=== PATIENT | female | born 1990 | race Hispanic/Latino ===

== ENCOUNTER 2016-12-09 13:58 | Emergency (ER) | payer BC ==
[2016-12-09 15:03] VITALS: BMI 24.9
[2016-12-09 15:09] VITALS: BP 127/77; PULSE 77; RESP 18; TEMP 97.7; O2SAT 96
--- NOTE | 2016-12-09 16:10 | ED PDOC ---
Arrival/HPI - General Chief Complaint: Lower Extremity Problem/Injury Time Seen by Provider: 12/09/16 15:01 Historian: Patient - History of Present Illness Narrative History of Present Illness (Text): 12/09/16 16:07 26yo female in Ed for left knee pain. states pain started while runing yesterday. Pain is only with ambulation. Did not take any medication for pain. Denies calf pain, any other complaint. Past Medical History - Provider Review Nursing Documentation Reviewed: Yes - Infectious Disease Hx of Infectious Diseases: None - Cardiac Hx Cardiac Disorders: No - Pulmonary Hx Respiratory Disorders: No - Neurological Hx Neurological Disorder: No - HEENT Hx HEENT Disorder: No - Renal Hx Renal Disorder: No - Endocrine/Metabolic Hx Endocrine Disorders: No - Hematological/Oncological Hx Leukemia: Yes (in remission) - Integumentary Hx Dermatological Disorder: No - Musculoskeletal/Rheumatological Hx Musculoskeletal Disorders: No - Gastrointestinal Hx Gastrointestinal Disorders: No - Genitourinary/Gynecological Hx Genitourinary Disorders: No - Psychiatric Hx Psychophysiologic Disorder: No Hx Substance Use: No - Surgical History Hx Tonsillectomy: Yes - Anesthesia Hx Anesthesia: Yes Hx Anesthesia Reactions: No Family/Social History - Physician Review Nursing Documentation Reviewed: Yes Family/Social History: Unknown Family HX Smoking Status: Never Smoked Hx Alcohol Use: No Hx Substance Use: No Allergies/Home Meds Allergies/Adverse Reactions: Allergies shellfish derived Allergy (Verified 12/09/16 15:04) ANAPHYLAXIS Review of Systems - Physician Review All systems were reviewed & negative as marked: Yes - Review of Systems Constitutional: Normal Eyes: Normal ENT: Normal Respiratory: Normal Cardiovascular: Normal Gastrointestinal: Normal Genitourinary Female: Normal Musculoskeletal: Arthralgias (LEft knee pain) Skin: Normal Neurological: Normal Endocrine: Normal Hemo/Lymphatic: Normal Psychiatric: Normal Physical Exam Vital Signs Reviewed: Yes Vital Signs Temp Pulse Resp BP Pulse Ox 12/09/16 15:00 97.7 F 77 18 127/77 96 Temperature: Afebrile Blood Pressure: Normal Pulse: Regular Respiratory Rate: Normal Appearance: Positive for: Well-Appearing, Non-Toxic, Comfortable Pain Distress: None Mental Status: Positive for: Alert and Oriented X 3 - Systems Exam Head: Present: Atraumatic, Normocephalic Pupils: Present: PERRL Extroacular Muscles: Present: EOMI Conjunctiva: Present: Normal Mouth: Present: Moist Mucous Membranes Neck: Present: Normal Range of Motion Respiratory/Chest: Present: Clear to Auscultation, Good Air Exchange. No: Respiratory Distress, Accessory Muscle Use Cardiovascular: Present: Regular Rate and Rhythm, Normal S1, S2. No: Murmurs Abdomen: Present: Normal Bowel Sounds. No: Tenderness, Distention, Peritoneal Signs, Rebound Back: Present: Normal Inspection Upper Extremity: Present: Normal Inspection. No: Cyanosis, Edema Lower Extremity: Present: NORMAL PULSES, Normal ROM, Tenderness (Lateral aspect of left knee), Neurovascularly Intact. No: Edema, CALF TENDERNESS, Swelling, Erythema, Deformity, Temperature Abnormalties Neurological: Present: GCS=15, CN II-XII Intact, Speech Normal Skin: Present: Warm, Dry, Normal Color. No: Rashes Psychiatric: Present: Alert, Oriented x 3, Normal Insight, Normal Concentration Medical Decision Making ED Course and Treatment: 12/09/16 16:09 Left knee xray - No acute finding Knee immobilizer placed. Crutches given. Advised to RICE knee. Referred to ortho. TRT ED for any new or worsening symptoms - RAD Interpretation Radiology Orders: 12/09/16 15:03 KNEE WITH PATELLA LEFT 3 VIEW [RAD] Stat - Medication Orders Current Medication Orders: Discontinued Medications Ketorolac Tromethamine (Toradol) 60 mg IM STAT STA Stop: 12/09/16 15:04 Last Admin: 12/09/16 15:18 Dose: 60 mg Disposition/Present on Arrival - Present on Arrival Any Indicators Present on Arrival: No History of DVT/PE: No History of Uncontrolled Diabetes: No Urinary Catheter: No History of Decub. Ulcer: No History Surgical Site Infection Following: None - Disposition Have Diagnosis and Disposition been Completed?: Yes Diagnosis: Knee sprain Disposition: HOME/ ROUTINE Disposition Time: 16:10 Patient Plan: Discharge Condition: STABLE Discharge Instructions (ExitCare): Knee Sprain (ED) Additional Instructions: Rest, Ice, elevate and compress Follow up with your Doctor/orthopedist Return to ED for any new or worsening symptoms Prescriptions: Ibuprofen [Motrin Tab] 600 mg PO Q6 #20 tab Referrals: Audi Pruett MD [Staff Provider] - Follow up with primary
--- NOTE | 2016-12-09 16:33 | RAD ---
PROCEDURE: Left Knee Radiographs. HISTORY: Pain. COMPARISON: None. FINDINGS: BONES: No evidence of acute displaced fracture nor dislocation. Osseous structures appear intact. JOINTS: Joint spaces preserved JOINT EFFUSION: Trace suprapatellar joint effusion felt to be present OTHER FINDINGS: None. IMPRESSION: No acute fractures nor dislocations.
== END 2016-12-09 16:29 | disposition home or self-care (01) ==
LOC: ED 13:58
DX: S83.92XA Sprain of unspecified site of left knee, initial encounter (principal); X58.XXXA Exposure to other specified factors, initial encounter; Y93.02 Activity, running
CPT/HCPCS: 73562; 96372; 99283; J1885

== ENCOUNTER 2017-04-06 01:56 | Emergency (ER) | payer BC ==
[2017-04-06 02:04] VITALS: BP 140/90; PULSE 69; RESP 16; TEMP 97.7; BMI 25.7
--- NOTE | 2017-04-06 03:07 | ED PDOC ---
Arrival/HPI - General Chief Complaint: Trauma Time Seen by Provider: 04/06/17 02:57 Historian: Patient - History of Present Illness Narrative History of Present Illness (Text): 04/06/17 03:05 Giuliana Carrizales is a 26 year old female who presents to the Emergency department status post head injury tonight. 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 Patient now complaining of headache, nausea, and dizziness. Patient denies any loss of consciousness, vision changes, shortness of breath, vomiting, bowel/urinary incontinence, neck pain, other trauma/injury, or any other complaints. Time/Duration: Other (tonight) Symptom Onset: Gradual Symptom Course: Unchanged Activities at Onset: Light Context: Walking, Work Past Medical History - Provider Review Nursing Documentation Reviewed: Yes - Infectious Disease Hx of Infectious Diseases: None - Cardiac Hx Cardiac Disorders: No - Pulmonary Hx Respiratory Disorders: No - Neurological Hx Neurological Disorder: No - HEENT Hx HEENT Disorder: No - Renal Hx Renal Disorder: No - Endocrine/Metabolic Hx Endocrine Disorders: No - Hematological/Oncological Hx Leukemia: Yes (in remission) - Integumentary Hx Dermatological Disorder: No - Musculoskeletal/Rheumatological Hx Musculoskeletal Disorders: No - Gastrointestinal Hx Gastrointestinal Disorders: No - Genitourinary/Gynecological Hx Genitourinary Disorders: No - Psychiatric Hx Psychophysiologic Disorder: No Hx Substance Use: No - Surgical History Hx Tonsillectomy: Yes - Anesthesia Hx Anesthesia: Yes Hx Anesthesia Reactions: No Family/Social History - Physician Review Nursing Documentation Reviewed: Yes Family/Social History: Unknown Family HX Smoking Status: Never Smoked Hx Alcohol Use: Yes Frequency of alcohol use: Few days per week Hx Substance Use: No Allergies/Home Meds Allergies/Adverse Reactions: Allergies Iodinated Contrast- Oral and IV Dye Allergy (Verified 04/06/17 02:04) ITCHING shellfish derived Allergy (Verified 04/06/17 02:04) ITCHING Home Medications: Home Meds Medication Instructions Recorded Confirmed No Known Home Med 04/06/17 04/06/17 Review of Systems - Physician Review All systems were reviewed & negative as marked: Yes - Review of Systems Constitutional: Normal. absent: Fevers Eyes: Normal. absent: Vision Changes ENT: Normal Respiratory: Normal. absent: SOB, Cough Cardiovascular: Normal. absent: Chest Pain Gastrointestinal: Nausea. absent: Abdominal Pain, Diarrhea, Vomiting Genitourinary Female: Normal. absent: Dysuria, Frequency, Hematuria, Urine Output Changes Musculoskeletal: Normal. absent: Back Pain, Neck Pain Skin: Normal Neurological: Headache, Dizziness Endocrine: Normal Hemo/Lymphatic: Normal Psychiatric: Normal Physical Exam Vital Signs Reviewed: Yes Vital Signs Temp Pulse Resp BP Pulse Ox 04/06/17 03:58 16 99 04/06/17 02:03 97.7 F 69 16 140/90 100 Temperature: Afebrile Blood Pressure: Normal Pulse: Regular Respiratory Rate: Normal Appearance: Positive for: Well-Appearing, Non-Toxic, Comfortable Pain Distress: None Mental Status: Positive for: Alert and Oriented X 3 - Systems Exam Head: Present: Atraumatic, Normocephalic Pupils: Present: PERRL Extroacular Muscles: Present: EOMI Conjunctiva: Present: Normal Mouth: Present: Moist Mucous Membranes Neck: Present: Normal Range of Motion Respiratory/Chest: Present: Clear to Auscultation, Good Air Exchange. No: Respiratory Distress, Accessory Muscle Use Cardiovascular: Present: Regular Rate and Rhythm, Normal S1, S2. No: Murmurs Abdomen: Present: Normal Bowel Sounds. No: Tenderness, Distention, Peritoneal Signs Back: Present: Normal Inspection Upper Extremity: Present: Normal Inspection. No: Cyanosis, Edema Lower Extremity: Present: Normal Inspection. No: Edema Neurological: Present: GCS=15, CN II-XII Intact, Speech Normal Skin: Present: Warm, Dry, Normal Color. No: Rashes Psychiatric: Present: Alert, Oriented x 3, Normal Insight, Normal Concentration Medical Decision Making ED Course and Treatment: 04/06/17 03:05 Impression: 26 year old female complaining of headache, nausea, and dizziness s/p head injury tonight at work. Differential Diagnosis included but are not limited to: head injury Plan: -- CT Head w/o contrast -- Zofran -- Reassess and disposition Progress Notes: 04/06/17 03:50 Reviewed radiology, CT Head shows: No intracranial hemorrhage. No intracranial edema. Chronic hypoattenuating areas in the cerebellum. No fluid in the sinuses or mastoid air cells. No depressed fractures. IMPRESSION: No acute intracranial injury. 04/06/17 04:01 04/06/17 03:53 On reevaluation the patient feels better and is in no acute distress. I have discussed the results and plan with the patient, who expresses understanding. Patient given the opportunity to ask question, all questions were answered and there is agreement with the plan to discharge the patient home. Patient is stable for discharge. Patient was instructed to follow up with physician/clinic in 1-2 days or return if symptoms persist/worsen or new concerning symptoms arise. - RAD Interpretation Radiology Orders: 04/06/17 03:08 HEAD W/O CONTRAST [CT] Stat Copier Technician: Radiologist - Medication Orders Current Medication Orders: Discontinued Medications Ondansetron HCl (Zofran Odt) 4 mg PO STAT STA Stop: 04/06/17 03:55 Last Admin: 04/06/17 03:58 Dose: 4 mg - Scribe Statement The provider has reviewed the documentation as recorded by the Mira Velez Provider Scribe Attestation: All medical record entries made by the Scribe were at my direction and personally dictated by me. I have reviewed the chart and agree that the record accurately reflects my personal performance of the history, physical exam, medical decision making, and the department course for this patient. I have also personally directed, reviewed, and agree with the discharge instructions and disposition. Disposition/Present on Arrival - Present on Arrival Any Indicators Present on Arrival: No History of DVT/PE: No History of Uncontrolled Diabetes: No Urinary Catheter: No History of Decub. Ulcer: No History Surgical Site Infection Following: None - Disposition Have Diagnosis and Disposition been Completed?: Yes Diagnosis: Head injury due to trauma Disposition: HOME/ ROUTINE Disposition Time: 03:53 Patient Plan: Discharge Patient Problems: Current Active Problems Problem Status Onset Head injury due to trauma Acute Condition: STABLE Discharge Instructions (ExitCare): Concussion (ED), Head Injury (ED) Additional Instructions: Rest next few days/no strenuous physical activity/Tylenol as directed/follow up with your doctor this week Forms: [facility] ([place]), WORK NOTE
--- NOTE | 2017-04-06 03:37 | CT ---
EXAM: CT Head Without Intravenous Contrast EXAM DATE/TIME: 04/06/2017 3:08 AM CLINICAL HISTORY: 26 years old, female; Injury or trauma; Injury Patient hit her head on a juke box. ; Initial encounter; Abrasion; Head, generalized TECHNIQUE: Axial computed tomography images of the head/brain without intravenous contrast. All CT scans at this facility use one or more dose reduction techniques, viz.: automated exposure control; ma/kV adjustment per patient size (including targeted exams where dose is matched to indication; i.e. head); or iterative reconstruction technique. COMPARISON: No relevant prior studies available. FINDINGS: No intracranial hemorrhage. No intracranial edema. Chronic hypoattenuating areas in the cerebellum. No fluid in the sinuses or mastoid air cells. No depressed fractures. IMPRESSION: No acute intracranial injury.
[2017-04-06 03:59] VITALS: O2SAT 99
== END 2017-04-06 04:04 | disposition home or self-care (01) ==
LOC: ED 01:56
DX: S09.90XA Unspecified injury of head, initial encounter (principal); W01.198A Fall on same level from slipping, tripping and stumbling with subsequent striking against other object, initial encounter; Y93.89 Activity, other specified; Y92.89 Other specified places as the place of occurrence of the external cause; Y99.0 Civilian activity done for income or pay